=== PATIENT | female | born 1995 | race Two or more races ===

== ENCOUNTER 2023-10-15 16:40 | Outpatient (CLI) | payer OTHER, SELFPAY ==
[2023-10-15 18:47] LABS: HCG,Quantitative 567 mIU/ml (0-5.42)
[2023-10-17 08:19] LABS: Progesterone 18.5 ng/mL (.)
== END 2023-10-15 23:59 ==
LOC: LAB 16:43
PROVIDERS: PCP Nurse Practitioner Family; Visit Provider Obstetrics & Gynecology
DX: Z32.00 Encounter for pregnancy test, result unknown (principal)
CPT/HCPCS: 36415; 84144; 84702

== ENCOUNTER 2023-10-24 07:04 | Outpatient (CLI) | payer OTHER, SELFPAY ==
[2023-10-24 10:27] LABS: HCG,Quantitative 20476 mIU/ml (0-5.42)
== END 2023-10-24 23:59 ==
LOC: LAB 07:05
PROVIDERS: PCP Nurse Practitioner Family; Visit Provider Obstetrics & Gynecology
DX: Z32.00 Encounter for pregnancy test, result unknown (principal)
CPT/HCPCS: 84702

== ENCOUNTER 2023-11-04 15:53 | Outpatient (CLI) | payer OTHER, SELFPAY ==
[2023-11-04 16:37] LABS: Basophils # 0.1 K/mm3 (0-0.2); Basophils % 0.6 % (0.1-2.0); Eosinophils # 0.2 K/mm3 (0.0-0.4); Eosinophils % 1.4 % (0.1-12.0); Hematocrit 41.3 % (37.0-47.0); Hemoglobin 13.9 g/dL (12.2-16.2); Lymphocytes # 2.7 K/mm3 (0.7-4.5); Mean Corpuscular HGB Conc 33.7 g/dL (31.8-35.4); Mean Corpuscular Hemoglobin 30.3 pg (27.0-31.2); Mean Platelet Volume 8.6 fl (7.4-10.4); Monocytes # 0.6 K/mm3 (0.1-1.0); Monocytes % 5.1 % (1.7-9.3); Neutrophils # 7.6 K/mm3 (1.8-7.8); Platelet Count 306 K/mm3 (142-424); Red Cell Distribution Width 12.7 % (11.5-17.5)
[2023-11-05 11:39] LABS: Rubella Antibodies, IgG 6.14 index (Immune >0.99)
[2023-11-05 13:11] LABS: Rapid Plasma Reagin Ab Titer Non Reactive titer (NonRea<1:1)
[2023-11-06 08:24] LABS: Neisseria gonorrhoeae, NAA Negative (Negative)
[2023-11-09 10:15] LABS: HIV Screen 4th Generation wRfx Non Reactive; Hepatitis B Surface Antigen Negative; Hepatitis C Antibody Non Reactive
== END 2023-11-04 23:59 ==
LOC: LAB 15:54
PROVIDERS: PCP Nurse Practitioner Family; Visit Provider Obstetrics & Gynecology
DX: Z34.91 Encounter for supervision of normal pregnancy, unspecified, first trimester (principal); Z3A.01 Less than 8 weeks gestation of pregnancy
CPT/HCPCS: 36415; 85025; 86593; 86703; 86762; 86850; 87086; 87340; 87380; 87491; 87591; G0432

== ENCOUNTER 2024-01-29 14:19 | Outpatient (CLI) | payer OTHER, SELFPAY ==
--- NOTE | 2024-01-29 14:20 | US_ITS ---
PROCEDURE: US OB /MATERNAL DETAIL CLINICAL INDICATION: 20 anatomy scan COMPARISON: No exams were available for comparison FINDINGS: Transabdominal sonographic images of the pelvis were obtained. From her established due date she is 19 weeks 4 days. Single viable intrauterine gestation. Breech then switched to cephalic position. Placenta: Posteriorplacenta grade 1. There is an average amount of fluid. The cervix appears satisfactory. Closed and measuring 3.9 cm in length. Complete survey performed and was unremarkable on the submitted images as in PACS. No discrete anomalies identified on survey imaging by technologist. Active fetus. Three-vessel cord with satisfactory umbilical cord insertion. 4- chamber heart noted. Situs, aortic arch, LVOT, RVOT, three-vessel view appear normal. There is an intracardiac echogenic foci. Cardiac arrhythmia was seen as well. Survey of brain & ventricles Unremarkable. Cerebellum, thalamus, choroid plexus, cisterna magna appear normal. Face and neck survey unremarkable. Profile, nasion, lips and nose appeared normal. Diaphragm and chest views unremarkable. Abdomen: Both kidneys noted and unremarkable. There is mild bilateral renal pelvis dilation measuring 4.7 mm and 5.5 mm. Stomach and bladder noted and satisfactory. Spine: Survey of the spine satisfactory with no anomalies identified nor imaged. Cervical, thoracic, lower spine appear normal. Both arms and legs noted. Amniotic Fluid: Adequate. Measurements: Average ultrasound age 19weeks 6days. Estimated due date by ultrasound age 0906/18/2024. Estimated weight 320g BPD = 19weeks 4days HC = 19weeks 3days AC = 20weeks 3days FL = 19weeks 4days Growth Percentile= Heart Rate = 149bpm Cerebellum = 19weeks 2days Humerus = 20weeks HC/AC is 1.1 FL/BPD is 0.69 FL/AC is 0.2 IMPRESSION: 1. Viable fetus in the cephalic presentation with a posterior placenta grade 1. 2. The fluid is within normal limits. 3. Anatomical scan appears normal. 4. There is bilateral renal pelvis dilation of up to 5.5 mm. 5. There is an intracardiac echogenic foci and a cardiac arrhythmia was seen. 6. Suggest an MFM consult. 7. biometry is consistent with a dates. Dictated by: Wale Braga MD 01/29/2024 16:15 Wale Braga MD in [place] 01/29/2024 16:15
== END 2024-01-29 23:59 | disposition home or self-care (01) ==
LOC: RAD 14:20
PROVIDERS: PCP Obstetrics & Gynecology; Visit Provider Obstetrics & Gynecology
DX: O26.892 Other specified pregnancy related conditions, second trimester (principal); Z3A.20 20 weeks gestation of pregnancy; Z36.89 Encounter for other specified antenatal screening
CPT/HCPCS: 76811

== ENCOUNTER 2024-03-10 07:02 | Outpatient (CLI) | payer OTHER, SELFPAY ==
[2024-03-10 07:55] LABS: Basophils # 0.1 K/mm3 (0-0.2); Basophils % 0.8 % (0.1-2.0); Eosinophils # 0.1 K/mm3 (0.0-0.4); Eosinophils % 1.1 % (0.1-12.0); Hematocrit 38.1 % (37.0-47.0); Hemoglobin 12.4 g/dL (12.2-16.2); Lymphocytes # 3.1 K/mm3 (0.7-4.5); Lymphocytes % 25.7 % (10-50); Mean Corpuscular HGB Conc 32.5 g/dL (31.8-35.4); Mean Corpuscular Hemoglobin 30.4 pg (27.0-31.2); Mean Corpuscular Volume 93.8 fl (81-99); Mean Platelet Volume 8.9 fl (7.4-10.4); Monocytes # 0.6 K/mm3 (0.1-1.0); Neutrophils # 8.2 K/mm3 (1.8-7.8); Neutrophils % 67.4 % (37.0-80.0); Platelet Count 319 K/mm3 (142-424); Red Blood Count 4.06 M/mm3 (4.20-5.40); Red Cell Distribution Width 13.3 % (11.5-17.5); White Blood Count 12.1 K/mm3 (4.8-10.8)
[2024-03-10 08:42] LABS: Glucose,Fasting 77 mg/dl (74-100)
[2024-03-10 09:42] LABS: Glucose 1 Hour 112 mg/dL (74-100)
== END 2024-03-10 23:59 | disposition home or self-care (01) ==
LOC: LAB 07:02
PROVIDERS: PCP Nurse Practitioner Family; Visit Provider Obstetrics & Gynecology
DX: O26.892 Other specified pregnancy related conditions, second trimester (principal); Z3A.25 25 weeks gestation of pregnancy; O99.810 Abnormal glucose complicating pregnancy
CPT/HCPCS: 36415; 82951; 85025

== ENCOUNTER 2024-05-26 12:54 | Outpatient (CLI) | payer OTHER, SELFPAY ==
--- NOTE | 2024-05-26 12:55 | US_ITS ---
PROCEDURE: US OB BIOPHYSICAL PROFILE CLINICAL INDICATION: check breech presentation COMPARISON: US US OB /MATERNAL DETAIL from 01/29/2024 FINDINGS: Transabdominal sonographic images of the uterus were obtained. From her established due date she is 36weeks 3days. The following parameters are obtained: Viable Fetus in the cephalic presentation with a posterior placenta grade 2. Average ultrasound age is 36weeks 1day Estimated weight 2,824g, 6 lb 4 oz The cervix measures 3.75 cm. Measurements: heart Rate = 134bpm BPD = 35weeks 3days, 32 percentile HC = 36weeks 3days, 21 percentile AC = 36weeks 0 days, 45 percentile FL = 36weeks 3days, 46 percent HC/AC is 1.01 FL/BPD is 0.81 FL/AC is 0.22 41 percentile Amniotic fluid index: 15.56cm, MVP 4.41 cm. Qualitative AFV:2 Breathing movements: 2 Gross Body Movements: 2 Tone: 2 Biophysical profile score: 8 No obvious anomalies evident.Kidneys, profile, four-chamber heart, three-vessel cord appear normal. There continues to be renal pelvis dilation in the right kidney measuring 6.4 mm. IMPRESSION: 1. Viable fetus in the cephalic presentation with a posterior placenta grade 2. 2. The fluid is within normal limits with an amniotic fluid index of 15.56 cm. MVP 4.41 cm. 3. Biophysical profile /8 with good breathing movement and movement seen. 4. There has been good interval growth with the fetus currently 41st percentile. 5. Limited anatomical scan appears normal. 6. There is persistent renal pelvis dilation of the right kidney measuring 6.4 mm today. Dictated by: Wale Braga MD 05/26/2024 15:51 Wale Braga MD in [place] 05/26/2024 15:51
== END 2024-05-26 23:59 | disposition home or self-care (01) ==
LOC: RAD 12:55
PROVIDERS: PCP Nurse Practitioner Family; Visit Provider Obstetrics & Gynecology
DX: O32.1XX0 Maternal care for breech presentation, not applicable or unspecified (principal)
CPT/HCPCS: 76816; 76819; 86403

== ENCOUNTER 2024-08-05 15:53 | Emergency (ER) | payer OTHER, SELFPAY ==
[2024-08-05 16:00] VITALS: BP 117/67; PULSE 113; RESP 19; TEMP 36.7; O2SAT 96; BMI 25.8
--- NOTE | 2024-08-05 16:17 | ED_ITS ---
Discharge Plan Disposition Patient Disposition: Home, Self-Care Condition: Good Prescriptions Prescriptions: New phenazopyridine [Pyridium] 200 mg tablet 200 mg PO Q8H 2 Days Qty: 6 0RF ondansetron 4 mg Tablet,Disintegrating 4 mg PO Q8H PRN (Reason: Nausea) Qty: 12 0RF nitrofurantoin monohyd/m-cryst [Macrobid] 100 mg Capsule 100 mg PO BID Qty: 10 0RF Rx Instructions: must administer with a meal/food No Action zuranolone 25 mg capsule 50 mg PO DAILY 14 Days Qty: 28 0RF Rx Instructions: administer with a high fat meal Referrals Follow up/Referrals: Carlos Au APRN [Primary Care Provider] - See instructions Activity Restrictions/Add. Instructions Additional Instructions/Restrictions: Drink plenty of fluids. Take tylenol or ibuprofen for pain or fever. Take the medications as directed. Follow up with your regular doctor. GO TO THE ER FOR ANY WORSENING SYMPTOMS The pyridium will make your urine turn orange, this is an expected side effect. It will stain your clothes if it comes into contact with them. We will culture the urine. That will tell what bacteria is causing your infection and which antibiotics will treat it best.This test takes 3 days to complete. Clinical Impressions Clinical Impression: UTI (urinary tract infection) Instructions Patient Instructions: Urine Culture, DI for Urinary Tract Infection (UTI), Phenazopyridine Print Language Print Language: Romansh Discharge ED Provider: Javier Melvin [facility] [place] General Stated complaint: poss UTI Mode of Arrival: Ambulatory Source of Information: Patient Limitations: No Limitations Time Seen by Provider: 08/05/24 16:10 Description of Symptoms (Recalled from Triage Doc. by RN): PATIENT C/O LOWER ABDOMINAL PAIN AND BURNING WITH URINATION THAT STARTED YESTERDAY HEENT Symptoms (Recalled from RN notes): No Resp Symptoms (Recalled from RN notes): No Skin Symptoms (Recalled from RN notes): No MS Symptoms (Recalled from RN notes): No Functional Status (Recalled from RN notes): WNL History of Present Illness Provider Complaint: She states that for the past 2 days she has had dysuria, urinary frequency, and low back pain. Related Data Previous Rx's ?Medication ?Instructions ?Recorded zuranolone 25 mg capsule 50 mg (2 x 25 mg) PO DAILY 14 days 07/08/24 #28 caps nitrofurantoin 100 mg PO BID #10 caps 08/05/24 monohydrate/macrocrystals 100 mg capsule (Macrobid) ondansetron 4 mg disintegrating 4 mg PO Q8H PRN Nausea #12 tabs 08/05/24 tablet phenazopyridine 200 mg tablet 200 mg PO Q8H 2 days #6 tabs 08/05/24 (Pyridium) Allergies Allergy/AdvReac Type Severity Reaction Status Date / Time No Known Allergies Allergy Verified 07/08/24 15:05 Worker's Comp Is this a Worker's Comp case?: No [facility] Disclaimer: The information contained in this section may have been updated after the patient was seen, as this information can be updated by other users. Medical History (Updated 08/05/24 @ 16:53 by Javier Melvin APRN) UTI (urinary tract infection) Depression Anxiety Acute blood loss anemia Foot fracture, left Surgical History Status post vaginal delivery No significant past surgical history Family History Other Alcoholism Diabetes Hyperlipidemia Hypertension Kidney disease Stroke Social History Smoking Status: Never smoker alcohol intake: never substance use type: denies use current occupational status: employed Travel in the last 8 weeks: None ROS Obtained: Yes All systems reviewed & no additional complaints except as documented Constitutional Constitutional: Reports system reviewed and no additional complaints, except as documented, Denies chills and Denies fever(s) Eyes Eyes: Denies eye discharge ENT Ears, Nose, Mouth, and Throat: Denies dysphagia, Denies sore throat and Denies throat swelling Cardiovascular Cardiovascular: Denies chest pain and Denies dyspnea Respiratory Respiratory: Denies chest congestion, Denies cough and Denies dyspnea Gastrointestinal Gastrointestingal: Denies abdominal pain, constipation, diarrhea, dysphagia, nausea or vomiting Genitourinary Female Genitourinary: Reports as per HPI, Reports dysuria, Reports urinary frequency, Denies urinary incontinence, Reports urinary hesitancy and Reports urinary urgency Musculoskeletal Musculoskeletal: Denies arthralgias and Reports back pain Integumentary/Breasts Skin/Breast: Denies rash Neurologic Neurologic: Denies paresthesias Allergic/Immunologic Allergic/Immunologic: Denies throat swelling Physical Exam General General appearance: alert and in no apparent distress Head Head exam: atraumatic and normocephalic Eye Eye exam: Present normal appearance, PERRL and EOMI ENT ENT exam: Present normal exam, mucous membranes moist, TM's normal bilaterally and normal external ear exam Neck Neck exam: Present normal inspection, full ROM and trachea midline; Absent tenderness, meningismus or lymphadenopathy Chest Chest inspection: Present normal inspection and symmetric chest wall rise; Absent tenderness Respiratory Respiratory exam: Present normal lung sounds bilaterally; Absent respiratory distress, wheezes or stridor Cardiovascular Cardiovascular exam: Present regular rate, normal rhythm and normal heart sounds Abdominal Exam Abdominal exam: Present soft and normal bowel sounds; Absent distention, tenderness, guarding, rebound, rigidity, incision, psoas sign, obturator sign, heel tap sign, Murillo's sign, Rovsing's sign or tenderness at McBurney's Point Extremities Exam Extremities exam: Present normal inspection, full ROM and normal capillary refill; Absent tenderness, edema, joint swelling, calf tenderness or cyanosis Back Exam Back exam: Present normal inspection and full ROM; Absent tenderness, CVA tenderness (R) or CVA tenderness (L) Neurological Exam Neurological exam: Present alert, oriented X3 and normal gait Psychiatric Psychiatric exam: Present normal affect and normal mood Skin Skin exam: Present warm, dry, intact and normal color Lymphatic Lymphatic Findings: no adenopathy Medical Decision Making Medical Records Medical records reviewed: No I reviewed the patient's medical records. Screening: Per USPSTF and CDC recommendations, given the prevalence of disease in our region, it is our hospital?s policy to screen for HIV and viral Hepatitis for all patients aged 18 and over and those with ongoing risk factors. Felice Inquiry Pt receiving controlled substance: No Vital Signs: 08/05/24 16:00 Temperature 98.1 F Temperature Source Oral Pulse Rate [Left Brachial] 113 H Respiratory Rate 19 Blood Pressure [Left Arm] 117/67 Blood Pressure Mean [Left Arm] 83 Blood Pressure Source [Left Arm] Automatic Cuff Blood Pressure Position [Left Arm] Sitting 02 Sat by Pulse Oximetry 96 Oxygen Delivery Method Room Air Lab Data Lab results reviewed: Yes I reviewed the patient's lab results.
[2024-08-05 16:53] LABS: Microscopic, Urine URINE MICROSCOPIC (MICROSCOPIC)
[2024-08-05 16:54] LABS: Appearance,Urine CLEAR (Clear); Blood, Urine 1+ (Negative); Color,Urine YELLOW (Yellow); Glucose,Urine (UA) Negative (Negative); Ketones,Urine 1+ (Negative); Leukocyte Esterase,Urine 1+ (Negative); Nitrate,Urine Negative (Negative); Protein,Urine Negative (Negative); Specific Gravity, Urine >= 1.030 (1.005-1.030); Urobilinogen,Urine 0.2 EU/dl (0.2)
[2024-08-05 17:12] LABS: Bilirubin,Urine Negative (Negative)
[2024-08-05 17:13] LABS: RBC,Urine 50-100 #/hpf (0-3)
[2024-08-05 17:14] LABS: Bacteria,Urine 4+ /lpf; Squamous Epithelial Cell,Urine 20-50 #/hpf (0-5); WBC,Urine TNTC #/hpf (0-3)
[2024-08-05 17:16] VITALS: BP 117/67; PULSE 113; RESP 19; TEMP 36.7; O2SAT 96
== END 2024-08-05 17:18 | disposition home or self-care (01) ==
PROVIDERS: Emergency Provider Nurse Practitioner Family; PCP Nurse Practitioner Family
DX: N39.0 Urinary tract infection, site not specified (principal)
CPT/HCPCS: 81001; 87086; 99213; G0381